=== PATIENT | male | born 1980 | race Caucasian/White ===

== ENCOUNTER → 2016-07-15 | Outpatient (CLI) | payer OTHER ==
--- NOTE | 2016-07-16 08:12 | REP ---
RIGHT TIBIA/FIBULA: HISTORY: Open wound lower leg. FINDINGS: No acute fracture or destructive osseous lesion. Signed by Tyron Tariq DO 07/16/2016 09:55 A
== END ==
LOC: M WUC 14:35
PROVIDERS: ATTEND Physician Assistant
DX: S81.801A Unspecified open wound, right lower leg, initial encounter (principal); X58.XXXA Exposure to other specified factors, initial encounter; Y93.9 Activity, unspecified; Y92.9 Unspecified place or not applicable; Y99.8 Other external cause status